=== PATIENT | male | born 1990 | race Caucasian/White ===

== ENCOUNTER 2021-08-18 19:50 | Emergency (ER) | payer SELFPAY ==
[~2021-08-18] VITALS: Ht 177.8 cm; Wt 91.0 kg
[2021-08-18 20:04] VITALS: BP 146/80
== END 2021-08-18 21:12 | disposition home or self-care (01) ==
LOC: ER 19:50
DX: F41.9 Anxiety disorder, unspecified (principal); R06.00 Dyspnea, unspecified; F12.10 Cannabis abuse, uncomplicated
CPT/HCPCS: 93005; 99283